=== PATIENT | female | born 1970 | race Caucasian/White ===

== ENCOUNTER 2019-07-23 05:52 | Day surgery (SDC) | payer OTHER ==
[2019-07-23] MEDS ORDERED: LACTATED RINGERS 1,000 ML ONE (05:59)
[2019-07-23] MEDS ORDERED: LIDOCAINE 1% 10 ML VIAL INJ ONE (10:00)
[2019-07-23] MEDS ORDERED: PROPOFOL 200 MG/20 ML VIAL IV ONE (10:00)
--- NOTE | 2019-07-23 10:50 | OP ---
DATE OF PROCEDURE: 07/23/19 PREPROCEDURE DIAGNOSIS: 1. Heme positive stool. 2. The patient's first colonoscopy. POSTPROCEDURE DIAGNOSIS: 1. Colonic polyps. PROCEDURE: 1. Colonoscopy with snare polypectomy. SURGEON: Keenan Taveras MD. SEDATION: Monitored anesthesia care. ESTIMATED BLOOD LOSS: Less than 5 mL. PROCEDURE: Informed consent was obtained prior to sedation. The preprocedure cardiopulmonary assessment was satisfactory. The patient was brought to the Endoscopy Suite and placed in the left lateral decubitus position. The patient was then sedated by the anesthesia team. Digital rectal and perianal exams were normal. The tip of the Olympus colonoscope was inserted into the rectum and advanced under direct visualization to the cecum as identified by the presence of the appendiceal orifice and ileocecal valve. Preparation of the colon was adequate. The endoscope was slowly withdrawn. In the ascending colon, there was a pedunculated polyp that was 15 mm in size. This was resected with hot snare polypectomy and retrieved. There was a sessile polyp in the ascending colon that was 1 cm in size. This was resected with hot snare polypectomy. In the proximal transverse colon, there was a 2 cm sessile polyp. This was resected with piecemeal polypectomy and retrieved. In the distal transverse colon, there was a 1 cm sessile that was resected with hot snare polypectomy and retrieved. Retroflexed view of the anal verge showed no abnormalities. The sigmoid colon was very tortuous. RECOMMENDATION: 1. Discharge the patient home with escort. 2. Resume regular diet. 3. Continue present medications. 4. Followup pathology. 5. Surveillance colonoscopy in 6 months due to piecemeal polypectomy. #[id number] [facility]
[2019-07-23 11:51] VITALS: O2SAT 100
[2019-07-23 11:53] VITALS: BP 122/80; TEMP 97.4
== END 2019-07-23 11:05 ==
LOC: AMB 05:52
PROVIDERS: ATTEND Internal Medicine Gastroenterology
DX: R19.5 Other fecal abnormalities (principal); D12.2 Benign neoplasm of ascending colon; D12.3 Benign neoplasm of transverse colon
CPT/HCPCS: 00811; 45385; J3490; J7120